=== PATIENT | female | born 1970 | race African-American/Black ===

== ENCOUNTER 2017-12-15 02:08 | Observation (INO) | payer SELFPAY ==
[2017-12-15 02:48] LABS: #Basophils 0.1 thou/uL (0.0-0.2); #Eosinphils 0.2 thou/uL (0.0-0.7); #Monocytes 0.7 thou/uL (0.11-0.59); #Neutrophils 4.6 thou/uL (1.40-6.50); %Basophils 0.7 % (0.0-1.0); %Lymphocytes 26.7 % (21.0-51.0); %Monocytes 8.9 % (0.0-10.0); %Neutrophils 61.7 % (42.0-75.0); Hemoglobin 11.3 g/dL (12.0-16.0); Mean Corpuscular HGB CONC 34.7 g/dL (32.0-36.0); Mean Corpuscular Hemoglobin 29.7 pg (27.0-31.0); Mean Corpuscular Volume 85.6 fL (78.0-98.0); Mean Platelet Volume 7.8 fL (7.4-10.4); Platelet Count 216 thou/uL (130-400); Red Blood Cell (RBC) Count 3.81 mill/uL (4.20-5.40); White Blood Cell (WBC) Count 7.5 thou/uL (4.8-10.8)
[2017-12-15 03:10] LABS: ALT (SGPT) 35 U/L (8-55); AST (SGOT) 22 U/L (5-34); Acetaminophen Less than 6.0 mcg/mL (10.0-30.0); Alcohol Less than 10 mg/dL (Less than 10); Alkaline Phosphatase 59 U/L (40-150); Anion Gap 14 mmol/L (10-20); BUN (Urea Nitrogen) 16 mg/dL (7.0-18.7); Bilirubin, Total 0.3 mg/dL (0.2-1.2); Calc. Creatinine Clearance 0 mL/min (70-130); Carbon Dioxide 21 mmol/L (22-29); Chloride 109 mmol/L (98-107); Estimated GFR-MDRD 73; Globulin 2.7 g/dL (2.4-3.5); Glucose 143 mg/dL (70-105); Potassium 3.4 mmol/L (3.5-5.1); Protein, Total 6.7 g/dL (6.0-8.3); Salicylate Less than 8.0 mg/dL (15.0-30.0); Sodium 141 mmol/L (136-145)
[2017-12-15 03:13] LABS: CKMB 1.5 ng/mL (0-6.6); Troponin I Less than 0.010 ng/mL (< 0.028)
[2017-12-15 03:14] LABS: CK (CPK) 350 U/L (29-168); Lipase 21 U/L (8-78)
[2017-12-15 03:18] LABS: Bilirubin Negative (Negative); Blood, Urine Negative (Negative); Clarity CLEAR (Clear); Glucose, Urine (Dipstick) 500 mg/dL (Negative); Leukocyte Moderate (Negative); Nitrite Negative (Negative); Protein, Urine (Dipstick) Negative (Neg-Trace); Specific Gravity, Urine 1.021 (1.002-1.036)
[2017-12-15 03:20] LABS: Bacteria/HPF None Seen HPF (None Seen); Pathc Cast-AUWi Flag 1.01 (0-2.49); RBC/HPF 0-3 HPF (0-3)
[2017-12-15 03:21] LABS: Hyaline Casts/LPF 0-3 HYALINE CAST LPF (0-3 Hyaline); Oval Fat Bodies/HPF None Seen HPF (None Seen); Renal Epithelial 0-3 HPF (0-3); Sperm/HPF None Seen HPF (None Seen); Transitional Epithelial 0-3 HPF (0-3); Trichomonas/HPF None Seen HPF (None Seen); Yeast-All Forms None Seen HPF (None Seen)
[2017-12-15] MEDS ORDERED: Lorazepam 2 MG/ML VIAL ONE (03:29)
[2017-12-15 04:31] LABS: Amphetamine Not Detected (NotDetected); Barbiturates Screen Not Detected (NotDetected); Benzodiazepine Screen Not Detected (NotDetected); Cocaine Metabolite Screen Not Detected (NotDetected); Medtox Control Line Valid? VALID (VALID); Medtox Reader # READER 1; Methadone Not Detected (NotDetected); Methamphetamine Not Detected (NotDetected); Opiate Screen Detected (NotDetected); Oxycodone Screen Not Detected (NotDetected); Phencyclidine (PCP) Not Detected (NotDetected); THC/Cannabinoid Screen Not Detected (NotDetected); Tricyclic Screen Detected (NotDetected)
[2017-12-15] MEDS ORDERED: Ondansetron ODT 4 MG TAB SL PRN (06:00)
[2017-12-15] MEDS ORDERED: Ondansetron HCl/PF 4 MG/2 ML Vial IVP PRN (06:00)
[2017-12-15 06:36] VITALS: BMI 34.6
[2017-12-15] MEDS ORDERED: Aspirin 325 mg Enteric Coated Tablet PO SCH (09:00)
--- NOTE | 2017-12-15 09:14 | RAD ---
PORTABLE CHEST: HISTORY: Mental status change. FINDINGS: The lungs are clear. Heart and mediastinum unremarkable. IMPRESSION: No acute process. POS: [facility]
--- NOTE | 2017-12-15 09:44 | CT ---
PRELIMINARY REPORT/[facility]/EMERGENTY AFTER-HOURS PROCEDURE CT Head Without Intravenous Contrast CLINICAL HISTORY: 47 years old, female; Signs and symptoms; Other: Seizure; Patient HX: Er7; F47 presents via ems with stroke like symptoms after seizure like activity. Ems reports pt was eating and talking to daughter o f phone when she started twitching and layed down on bed and became unresponsive. Ems reports l arm drift and that pt was able to squeeze with less strength on l. HX of back surgery. Pt is not ve rbal currently TECHNIQUE: Axial computed tomography images of the head/brain without intravenous contrast. COMPARISON: No relevant prior studies available. FINDINGS: No definite acute skull fracture. Minimal right sphenoid and left ethmoid sinus opacity. Included paranasal sinuses otherwise appear essentially clear. No acute intracranial hemorrhage or mass effect. Ventricle size is normal for age. No definite acute infarct by CT. MRI could be more sensitive/specific for detection, as clinically di rected. IMPRESSION: No acute intracranial bleed or mass effect. No definite acute infarct by CT, see above. Thank you for allowing us to participate in the care of your patient. Dictated and Authenticated by: Michael Rangel MD 12/15/2017 3:23 AM Central Time ([place] & [place]) FINAL REPORT CT BRAIN WITHOUT CONTRAST: I agree with the preliminary report given by Dr. Michael Rangel of [facility]. POS: [facility]
--- NOTE | 2017-12-15 10:05 | ULT ---
CAROTID DOPPLER: TECHNIQUE: Ultrasound Doppler study was performed of the extracranial carotid arteries. Color Doppler with spec tral analysis and velocity recordings obtained. INDICATION: CVA. FINDINGS: No significant echogenic plaque seen with Doppler. Velocity recordings are normal bilaterally. Vert ebrals are antegrade. IMPRESSION: 1. No significant echogenic plaque. 2. No evidence of carotid stenosis. POS: [facility]
[2017-12-15] MEDS ORDERED: HYDROcodone/Acetaminophen 5/325 mg Tablet PO PRN (13:24)
[2017-12-15] MEDS ORDERED: hydrALAZINE 20 MG/ML VIAL SLOW IVP PRN (13:31)
[2017-12-15] MEDS ORDERED: Nitroglycerin 0.4 MG TAB (25 Tab Bottle) PO PRN (13:31)
[2017-12-15] MEDS ORDERED: Calcium Carbonate 500 MG ChewTAB PO PRN (13:31)
[2017-12-15] MEDS ORDERED: Senokot 8.6 MG TAB PO PRN (13:31)
[2017-12-15] MEDS ORDERED: Bisacodyl 5 MG TAB PO PRN (13:31)
[2017-12-15] MEDS ORDERED: Zolpidem Tartrate 5 MG TAB PO PRN (13:54)
[2017-12-15] MEDS ORDERED: SUMAtriptan Succinate 50 MG TAB PO PRN (13:56)
[2017-12-15 15:36] LABS: Troponin I Less than 0.010 ng/mL (< 0.028)
[2017-12-15] MEDS: Gabapentin 400 MG CAP PO SCH ×2 (15:57→21:59)
[2017-12-15] MEDS: busPIRone HCl 10 MG TAB PO SCH ×2 (15:57→21:59)
[2017-12-15] MEDS: glipiZIDE 5 MG TAB PO SCH (15:57)
[2017-12-15] MEDS ORDERED: tiZANidine HCl 4 MG TAB PO PRN (21:00)
[2017-12-15] MEDS: Nortriptyline HCl 25 MG CAP PO SCH (21:58)
[2017-12-15] MEDS: DULoxetine 60 MG CAP PO SCH (21:59)
[2017-12-15] MEDS: Carvedilol 6.25 MG TAB PO SCH (21:59)
[2017-12-15] MEDS: Pravastatin Sodium 20 MG TAB PO SCH (22:00)
--- NOTE | 2017-12-16 03:56 | PDOC.EVN ---
Event Note - Event Note Event Note: h&p [id number]
[2017-12-16 06:01] LABS: #Basophils 0.1 thou/uL (0.0-0.2); #Eosinphils 0.2 thou/uL (0.0-0.7); #Lymphocytes 1.9 thou/uL (1.20-3.40); #Monocytes 0.4 thou/uL (0.11-0.59); #Neutrophils 2.1 thou/uL (1.40-6.50); %Basophils 1.4 % (0.0-1.0); %Eosinophils 3.7 % (0.0-10.0); %Lymphocytes 40.5 % (21.0-51.0); %Monocytes 9.2 % (0.0-10.0); %Neutrophils 45.2 % (42.0-75.0); Hemoglobin 11.6 g/dL (12.0-16.0); Mean Corpuscular HGB CONC 33.9 g/dL (32.0-36.0); Mean Corpuscular Volume 85.7 fL (78.0-98.0); Mean Platelet Volume 7.6 fL (7.4-10.4); Platelet Count 189 thou/uL (130-400); Red Blood Cell (RBC) Count 3.99 mill/uL (4.20-5.40); White Blood Cell (WBC) Count 4.8 thou/uL (4.8-10.8)
[2017-12-16 06:13] LABS: Anion Gap 12 mmol/L (10-20); BUN (Urea Nitrogen) 7 mg/dL (7.0-18.7); Calc. Creatinine Clearance 141 mL/min (70-130); Calcium 8.7 mg/dL (7.8-10.44); Carbon Dioxide 24 mmol/L (22-29); Cardiac Risk 3.8 (Less than 4.5); Chloride 110 mmol/L (98-107); Cholesterol 122 mg/dl (< 200 Desired); Estimated GFR-MDRD Greater than 90; Glucose 121 mg/dL (70-105); HDL Cholesterol 32 mg/dL (>60 Neg Risk); LDL Cholesterol, Calculated 75 mg/dL; Magnesium 1.8 mg/dL (1.6-2.6); Potassium 3.4 mmol/L (3.5-5.1); Sodium 143 mmol/L (136-145); Triglycerides 77 mg/dL (Less than 150)
--- NOTE | 2017-12-16 06:18 | HP ---
The patient does not have any primary care provider. CHIEF COMPLAINT: Chest pain and unresponsiveness. HISTORY OF PRESENT ILLNESS: This is a 47-year-old female with significant amount of chronic pain and status post pain stimulator placement in her neck, anxiety, who presents after experiencing rapid grossman ccession of events that started out with pain in her bilateral lower extremities that radiated up thr oughout her entire body and with subsequent unresponsiveness as described by the patient's family. T he patient notes that she has been very tired of late planning a birthday alliance party and had likely been s lightly dehydrated all day prior to the birthday alliance party. She has been also standing all day. These e vents happened at the end of the birthday alliance party. At the time of my evaluation, the patient denies any further pain. She also notes that after initial ly being unresponsive when she came to, she had some difficulty with speech and with some fine motor control. REVIEW OF SYSTEMS: As per HPI. Constitutional: No significant weight loss or gain. No fevers, no chills. HEENT: Endorses some difficulty with cognition, not well defined. Otherwise, denies any he adaches, lightheadedness or dizziness. Cardiovascular: Chest pain that occurred after she had the w hole body pain. The sequence of the events being bilateral lower extremity pain radiating up to her entire body followed by resolving chest discomfort, which is described as a central pressure-like sen sation. Respiratory: Denies any shortness of breath, dyspnea with exertion, cough, congestion or re cent upper respiratory illness. Gastrointestinal: No recent issues with nausea, vomiting, abdominal pain, diarrhea or constipation. Genitourinary: Denies any recent issues with dysuria, changes in u rinary color, quantity, frequency, odor. Musculoskeletal: As per above. Remainder of the review of systems is otherwise negative. PAST MEDICAL HISTORY: As per above, significant for, 1. Chronic pain for which the patient has chronic opioid use. 2. Hypertension. 3. Hyperlipidemia 4. Type 2 diabetes. 5. Insomnia. 6. Anxiety. ALLERGIES: To CEFAZOLIN. FAMILY HISTORY: No known family history of strokes, seizures or similar issues with chronic pain. PHYSICAL EXAMINATION: GENERAL: The patient is awake, alert, and oriented, in no acute distress, lying in the hospital bed. HEENT: Normocephalic, atraumatic. Equal ocular motions are intact with moist mucous membranes. CARDIOVASCULAR: S1, S2. No murmurs, rubs or gallops. Pulses 2+ bilateral upper extremities, 1+ tra ce to 1+ bilateral pitting pedal edema. ABDOMEN: Positive bowel sounds, soft, nontender to palpation. MUSCULOSKELETAL: Moving all 4 extremities independently. NEUROLOGIC: Cranial nerves II-XII grossly intact. Strength grossly bilateral, 5/5 upper and lower e xtremities. LABORATORY DATA AND IMAGING: WBC 7.5, hemoglobin 11.3, hematocrit 32.4, platelets 216. Sodium 141, potassium 3.4, chloride 109, bicarb 21, BUN 16, creatinine 0.83, glucose 143, calcium 9.0, magnesium 1.8, AST 22, ALT 35, alkaline phosphatase 59, creatinine kinase 350, troponin less than 0.1 x2. Tota l protein 6.7, albumin 4.0, lipase 21, prolactin 22.9. UA is significant for glucose, ketones, leuko esterase, wbc's and squamous epithelial cells. ASSESSMENT AND PLAN: This is a 47-year-old female who presents with a highly atypical episode. It a ppears that in the ER, there was concern for seizures. She was given a dose of Ativan. At the time of my evaluation appears as event that the episode has completely resolved as the patient feels close to her baseline. We will check EEG in case there was a possibility of a seizure; however, in the se tting of a very normal prolactin level that makes it somewhat less likely. I appreciate Neurology co nsultation. Question if perhaps the patient had an episode of hypertensive urgency precipitated by h er pain. This could certainly explain her presentation, particularly in the sequence of events. 1. Chest pain, concern that the patient may have actually had chest pain due to exertion. We will t rend serial troponins, maintain the patient on telemetry. The patient states that she sees Cardiolog y on an outpatient basis. We will consult Cardiology as well. 2. Chronic pain. Continue on the patient's home regimen. 3. Hyperlipidemia. Continue on home regimen. 4. Diet as tolerated. 5. Activity as tolerated. 6. Deep venous thrombosis prophylaxis with Lovenox.
[2017-12-16] MEDS: busPIRone HCl 10 MG TAB PO SCH ×3 (08:25→21:06)
[2017-12-16] MEDS: glipiZIDE 5 MG TAB PO SCH ×2 (08:25→17:04)
[2017-12-16] MEDS: predniSONE 20 MG TAB PO SCH (08:26)
[2017-12-16] MEDS: Carvedilol 6.25 MG TAB PO SCH ×2 (08:26→21:05)
[2017-12-16] MEDS: metFORMIN 500 MG TAB PO SCH ×2 (08:26→17:04)
[2017-12-16] MEDS: Gabapentin 400 MG CAP PO SCH ×4 (08:26→21:06)
[2017-12-16] MEDS: DULoxetine 60 MG CAP PO SCH ×2 (08:26→21:05)
[2017-12-16] MEDS: Lisinopril 10 MG TAB PO SCH (08:26)
[2017-12-16] MEDS: Amlodipine 10 MG TAB PO SCH (08:26)
[2017-12-16] MEDS: Enoxaparin Sodium 40 MG/0.4 ML SYRINGE SC SCH (08:27)
[2017-12-16] MEDS ORDERED: Enoxaparin Sodium 30 MG/0.3 ML SYRINGE SC SCH (09:00)
[2017-12-16] MEDS: Diclofenac Sodium 25 mg Tablet PO SCH (09:12)
[2017-12-16] MEDS: Mexiletine HCl 150 MG CAP PO SCH (09:12)
--- NOTE | 2017-12-16 15:18 | CON ---
DATE OF CONSULTATION: 12/16/2017 CONSULTING PHYSICIAN: Hospitalist Service. IMPRESSION: Possible seizure, although there are some issues that she reports that would make me chris picious that it may have been psychogenic. PLAN: 1. MRI of the brain. 2. No anticonvulsants at this time. 3. Office followup. HISTORY OF PRESENT ILLNESS: Ms. Cruz is a long-term patient of mine for chronic pain management. Her reports that she saw her have a tonic clonic stiffening episode prior to admission, this lasted about a total of 3 minutes. She then had a tonic period of time that seemed to last about 5 m inutes. She was unable to speak and reports that she remembers pieces of the events. After it was o andrea where she felt very tired. There is no associated headache, nausea or vomiting. She came in and had a CT scan of the brain done which was unremarkable. Carotid ultrasound was also clear. She has never had a seizure in the past. Given the new onset of symptoms, I would monitor her for now. She was not on any medication that wou ld lower her seizure threshold. Follow up with her in the office.
--- NOTE | 2017-12-16 15:23 | PDOC.PN ---
- Subjective Encounter Start Date: 12/16/17 Encounter Start Time: 11:45 Subjective: f/u for ? seizure activity currently asymptomatic. Initial work up neg. -: No hx of seizures or recent illness. - Objective Resuscitation Status: Resuscitation Status FULL:Full Resuscitation MAR Reviewed: Yes Vital Signs & Weight: Vital Signs (12 hours) Temp Pulse Resp BP BP Pulse Ox 12/16/17 11:40 98.2 F 97 16 121/66 96 12/16/17 08:41 98.6 F 98 16 12/16/17 08:26 98 140/71 12/16/17 07:44 98.6 F 98 16 128/72 98 12/16/17 04:00 98.1 F 109 H 16 114/70 96 Weight Weight 208 lb 3.2 oz I&O: 12/15/17 12/16/17 12/17/17 06:59 06:59 06:59 Intake Total 500 Balance 500 Result Diagrams: 12/16/17 05:24 12/16/17 05:24 Additional Labs: Microbiology 12/15/17 03:06 Urine Straight Catheter Urine Culture - Final NO GROWTH AT 36 HOURS Laboratory Tests 12/15/17 12/15/17 12/15/17 02:35 02:36 02:36 Hgb 11.3 L Potassium 3.4 L Triglycerides Cholesterol LDL Cholesterol, Calc HDL Cholesterol TSH 3rd Generation Prolactin 22.09 Urine Opiates Screen Ur Tricyclics Screen 12/15/17 12/16/17 12/16/17 03:06 05:24 05:24 Hgb Potassium Triglycerides 77 Cholesterol 122 LDL Cholesterol, Calc 75 HDL Cholesterol 32 TSH 3rd Generation 0.8423 Prolactin Urine Opiates Screen Detected H Ur Tricyclics Screen Detected H Radiology Reviewed by me: Yes (Carotid doppler -neg, CT brain - neg) EKG Reviewed by me: Yes (Tele - SR) Phys Exam - Physical Examination Constitutional: NAD smiling, eating lunch HEENT: PERRLA, sclera anicteric, oral pharynx no lesions Neck: no nodes, no JVD, supple, full ROM Respiratory: no wheezing, no rales, no rhonchi, clear to auscultation bilateral S1, S2 Cardiovascular: RRR, no significant murmur, no rub, gallop Gastrointestinal: soft, non-tender, no distention, positive bowel sounds Musculoskeletal: no edema, pulses present Neurological: normal sensation, moves all 4 limbs Psychiatric: normal affect, A&O x 3 Skin: no rash, normal turgor, cap refill <2 seconds Dx/Plan (1) Encephalopathy acute Code(s): G93.40 - ENCEPHALOPATHY, UNSPECIFIED Status: Acute Comment: ? etiology, ? seizure activity, resolved currently (2) Seizure Code(s): R56.9 - UNSPECIFIED CONVULSIONS Status: Acute Comment: Suspected, MRI brain pending, no anticonvulsants per Neurology recommendations, monitor for recurrence, outpt EEG (3) Chronic pain Code(s): G89.29 - OTHER CHRONIC PAIN Status: Chronic Qualifiers: Chronic pain type: chronic pain syndrome Qualified Code(s): G89.4 - Chronic pain syndrome Comment: Implantable neural stimulator, po pain meds (4) HTN (hypertension) Code(s): I10 - ESSENTIAL (PRIMARY) HYPERTENSION Status: Chronic Qualifiers: Hypertension type: essential hypertension Qualified Code(s): I10 - Essential (primary) hypertension Comment: Continue Lisinopril and Coreg, monitor BP trend (5) DM II (diabetes mellitus, type II), controlled Code(s): E11.9 - TYPE 2 DIABETES MELLITUS WITHOUT COMPLICATIONS Status: Chronic Comment: Continue Metformin and Glipizide, ISS - Plan plan discussed w/ family, out of bed/ambulate, DVT proph w/SCDs Stable overall -: MRI brain pending -: Continue to monitor for seizure activity -: Outpatient EEG -: Likely home in 24h * .
[2017-12-16] MEDS: Pravastatin Sodium 20 MG TAB PO SCH (21:05)
[2017-12-16] MEDS: Nortriptyline HCl 25 MG CAP PO SCH (21:05)
[2017-12-17 05:07] LABS: #Basophils 0.1 thou/uL (0.0-0.2); #Eosinphils 0.1 thou/uL (0.0-0.7); #Lymphocytes 2.5 thou/uL (1.20-3.40); #Monocytes 0.7 thou/uL (0.11-0.59); #Neutrophils 4.4 thou/uL (1.40-6.50); %Basophils 0.6 % (0.0-1.0); %Eosinophils 1.2 % (0.0-10.0); %Lymphocytes 32.6 % (21.0-51.0); %Monocytes 8.9 % (0.0-10.0); %Neutrophils 56.6 % (42.0-75.0); Hemoglobin 11.6 g/dL (12.0-16.0); Mean Corpuscular Hemoglobin 28.5 pg (27.0-31.0); Mean Corpuscular Volume 86.3 fL (78.0-98.0); Mean Platelet Volume 7.7 fL (7.4-10.4); Platelet Count 208 thou/uL (130-400); Red Blood Cell (RBC) Count 4.05 mill/uL (4.20-5.40); White Blood Cell (WBC) Count 7.8 thou/uL (4.8-10.8)
[2017-12-17 05:25] LABS: Anion Gap 12 mmol/L (10-20); BUN (Urea Nitrogen) 11 mg/dL (7.0-18.7); Calc. Creatinine Clearance 130 mL/min (70-130); Calcium 9.2 mg/dL (7.8-10.44); Carbon Dioxide 24 mmol/L (22-29); Chloride 109 mmol/L (98-107); Estimated GFR-MDRD Greater than 90; Glucose 128 mg/dL (70-105); Potassium 3.4 mmol/L (3.5-5.1); Sodium 142 mmol/L (136-145)
[2017-12-17] MEDS: glipiZIDE 5 MG TAB PO SCH (08:04)
[2017-12-17] MEDS: metFORMIN 500 MG TAB PO SCH (08:05)
[2017-12-17] MEDS: predniSONE 20 MG TAB PO SCH (08:06)
[2017-12-17] MEDS: Amlodipine 10 MG TAB PO SCH (08:07)
[2017-12-17] MEDS: Carvedilol 6.25 MG TAB PO SCH (08:09)
[2017-12-17] MEDS: busPIRone HCl 10 MG TAB PO SCH (08:09)
[2017-12-17] MEDS: DULoxetine 60 MG CAP PO SCH (08:10)
[2017-12-17] MEDS: Lisinopril 10 MG TAB PO SCH (08:11)
[2017-12-17] MEDS: Gabapentin 400 MG CAP PO SCH ×2 (08:11→12:03)
[2017-12-17] MEDS: Enoxaparin Sodium 40 MG/0.4 ML SYRINGE SC SCH (08:11)
[2017-12-17] MEDS: Mexiletine HCl 150 MG CAP PO SCH (08:34)
[2017-12-17] MEDS: Diclofenac Sodium 25 mg Tablet PO SCH (08:35)
[2017-12-17] MEDS ORDERED: ESTROGEN CON PO SCH (09:00)
[2017-12-17] MEDS ORDERED: M PROGEST ACET PO SCH (09:00)
[2017-12-17 11:33] VITALS: BP 134/75; TEMP 97.9
--- NOTE | 2017-12-17 14:06 | DIS ---
DATE OF ADMISSION: 12/15/2017 DATE OF DISCHARGE: 12/17/2017 DISCHARGE DIAGNOSES: 1. Acute encephalopathy, questionable etiology, resolved. 2. Tonic-clonic episode, etiology unclear. 3. Chronic pain syndrome with chronic narcotic therapy. 4. Hypertension, stable. 5. Diabetes mellitus type 2, stable. CONSULTATIONS: Dr. Wellington with Neurology Service. PERTINENT LABORATORY DATA AND IMAGING DATA: Potassium 3.4, BNP 11. Total cholesterol 122, triglycer ides 77, HDL 32, LDL 75, TSH 0.84. Prolactin level 22. CBC showed hemoglobin ranging between 11.3-1 1.6. Urine drug screen dated 12/15/2017 positive for tricyclics and opiates. Plasma alcohol level l ess than 10. Urine culture dated 12/15/2017 showed no growth at [address] of the brain without c ontrast dated 12/15/2017 showed no acute intracranial process. Portable chest x-ray dated 12/15/2017 showed no acute cardiopulmonary process. Carotid Doppler study dated 12/15/2017 showed no hemodynam ically significant stenosis. A 2D transthoracic echocardiogram dated 12/16/2017 showed ejection frac tion of 65%-70%. Moderate pulmonic regurgitation. EEG performed on 12/17/2017, final interpretation pending at the time of this dictation. HOSPITAL COURSE: The patient was observed on the stroke unit after initially presenting with unrespo nsiveness, altered mentation and tonic clonic episode. The patient was initially managed for potenti al stroke-like presentation with CT of the brain performed showing no acute process. The patient und erwent general stroke workup which was essentially unrevealing. The patient was also evaluated for p otential seizure-like activity undergoing EEG evaluation at the direction of the Neurology Service. Final interpretation is pending at the time of this dictation. The patient was also recommended for MRI imaging of the brain; however, could not have this study performed due to an implanted neural sti mulator and MRI incompatibility. Telemetry monitoring showed no evidence of acute arrhythmia or dysr hythmia, and overall, patient did remain clinically stable without recurrence of similar incidents le ading to this admission. Currently, vital signs are stable and patient tolerating regular oral intak e, and ambulating without assistance or difficulty. I have examined the patient at the time of disch arge and discussed followup instructions at which point the patient and family verbalized agreement a nd understanding. The patient overall is clinically stable and ready for discharge on 12/17/2017. DISCHARGE MEDICATIONS: 1. Amlodipine 10 mg 1 tab p.o. daily. 2. BuSpar 10 mg p.o. t.i.d. 3. Coreg 3.125 mg p.o. b.i.d. 4. Cymbalta 120 mg p.o. b.i.d. 5. Prempro 0.625 mg/5 mg 1 tab p.o. q.48 hours. 6. Gabapentin 800 mg p.o. q.i.d. 7. Glipizide 5 mg p.o. b.i.d. 8. Ringgold 5/325 mg 1 tab p.o. b.i.d. p.r.n. 9. Lisinopril 10 mg p.o. daily. 10. Metformin 1000 mg p.o. b.i.d. 11. Mexiletine 150 mg p.o. daily. 12. Pamelor 25 mg p.o. at bedtime. 13. Pravachol 20 mg p.o. at bedtime. 14. Prednisone 10 mg p.o. daily. 15. Imitrex 100 mg p.o. b.i.d. p.r.n. 16. Tizanidine 4 mg p.o. t.i.d. p.r.n. 17. Voltaren XR 75 mg p.o. daily. 18. Ambien 10 mg p.o. at bedtime p.r.n. FOLLOWUP: The patient will follow up with her primary care provider within 7 days of discharge. The patient will follow up with Dr. Robert Wellington with Neurology Service within 7 days of discharge. CONDITION ON DISCHARGE: Stable. ACTIVITY: Ad prince. DIET: Heart healthy and ADA. SPECIAL INSTRUCTIONS: Follow up with Neurology Service for review of EEG. CODE STATUS: FULL. DISPOSITION: Home 12/17/2017.
--- NOTE | 2017-12-18 10:20 | EEG ---
Referring Physician: DR. TRIVEDI EEG # [id number] TEST TYPE: ROUTINE PORTABLE INPATIENT REPORT: AN EEG USING THE [employer]NATIONAL TEN-TWENTY SYSTEM OF ELECTRODE PLACEMENT WAS PERFORMED. The waking background is a low amplitude 10 hertz alpha frequency. Some EMG artifact was present. No epileptiform features were noted. Hyperventilation and photic stimulation were unremarkable. IMPRESSION: THIS IS A NORMAL AWAKE EEG. Chute Greaser: CATERINA Air Brake Tester: EEG.DONTE SCHNEIDER
--- NOTE | 2017-12-22 10:40 | EKG ---
Test Reason : Blood Pressure : / mmHG Vent. Rate : 105 BPM Atrial Rate : 105 BPM P-R Int : 142 ms QRS Dur : 074 ms QT Int : 356 ms P-R-T Axes : 061 014 009 degrees QTc Int : 470 ms Sinus tachycardia Otherwise normal ECG Confirmed by JAUN CORNELIUS, [place] ([id number]), news editor ARTIE ONEAL ([id number]) on 12/22/2017 10:39:47 AM Referred By: Confirmed By:ITALIA ZAMORANO MD
== END 2017-12-17 14:37 | disposition home or self-care (01) ==
LOC: ERS 02:08 → 2SE 05:59
PROVIDERS: ADMIT Internal Medicine; ATTEND Internal Medicine
DX: G93.40 Encephalopathy, unspecified (principal); R56.9 Unspecified convulsions; G89.4 Chronic pain syndrome; I10 Essential (primary) hypertension; E11.9 Type 2 diabetes mellitus without complications; E78.5 Hyperlipidemia, unspecified; G47.00 Insomnia, unspecified; F41.9 Anxiety disorder, unspecified; Z79.52 Long term (current) use of systemic steroids; Z79.84 Long term (current) use of oral hypoglycemic drugs; Z79.899 Other long term (current) drug therapy; Z88.1 Allergy status to other antibiotic agents; Z98.890 Other specified postprocedural states
CPT/HCPCS: 36415; 51701; 70450; 71045; 80048; 80053; 80061; 80306; 80307; 81003; 81015; 82550; 82553; 83690; 83735; 83880; 84146; 84443; 84484; 85025; 87086; 93005; 93306; 93880; 95816; 95819; 96372; 96374; A4353; G0378; J1650; J2060; J7506